=== PATIENT | male | born 1995 | race Two or more races ===

== ENCOUNTER 2017-07-31 21:42 | Emergency (ER) | payer SELFPAY ==
[~2017-07-31] VITALS: Ht 172.7 cm; Wt 78.0 kg
[2017-07-31] MEDS ORDERED: LORAZEPAM 2MG/ML CPJ IV STA (22:10)
[2017-07-31] MEDS ORDERED: OLANZAPINE 10 MG/VIAL IM STA (22:10)
[2017-07-31] MEDS ORDERED: SODIUM CHLORIDE 0.9% 1,000 ML IV ONE (22:10)
[2017-07-31 22:52] LABS: BASOPHILS % 0.7 % (0.0-2.0); CHLORIDE 108 mEq/L (98-107); HEMATOCRIT. 52.3 % (42.0-52.0); HEMOGLOBIN. 18.4 g/dL (14.0-18.0); LYMPHOCYTES % 19.2 % (20.0-50.0); MEAN CORPUSCULAR HEMOGLOBIN 30.4 pg (28.0-32.0); MEAN CORPUSCULAR VOLUME 86.5 fL (80.0-94.0); MEAN PLATELET VOLUME 7.3 fl (7.4-10.4); MONOCYTES % 6.3 % (2.0-8.0); NEUTROPHILS % 73.8 % (40.0-76.0); PLATELET 397 x1000/uL (130-400); RED BLOOD CELL COUNT 6.05 mill/uL (4.7-6.1); RED CELL DISTRIBUTION WIDTH 13.9 % (11.6-14.6)
[2017-07-31 22:54] LABS: INR 1.2; PROTHROMBIN TIME 12.1 sec (9.4-11.6)
[2017-07-31 22:57] LABS: AMMONIA 25 uMol/L (<32); ETHANOL BLOOD 175 mg/dL
[2017-07-31 23:01] LABS: CREATINE KINASE 200 IU/L (39-308)
[2017-07-31] MEDS ORDERED: LORAZEPAM 2MG/ML CPJ IM ONE (23:15)
[2017-08-01] MEDS ORDERED: CEFTRIAXONE 1 G PREMIX 50 ML IV SCH (00:42)
[2017-08-01] MEDS ORDERED: AZITHROMYCIN 500 MG in DEXT 5% WATER 250 ML IV SCH (00:42)
[2017-08-01] MEDS ORDERED: SODIUM CHLORIDE 0.9% 1000ML BAG (SEPSIS BOLUS) IV ONE (01:15)
[2017-08-01 04:21] LABS: CLARITY URINE CLEAR (CLEAR); COLOR URINE YELLOW (YELLOW); KETONES URINE NEGATIVE (NEGATIVE); LEUKOCYTE ESTERASE URINE NEGATIVE (NEGATIVE); NITRITE URINE NEGATIVE (NEGATIVE); OCCULT BLOOD URINE NEGATIVE (NEGATIVE); PROTEIN URINE NEGATIVE (NEGATIVE); SPECIFIC GRAVITY URINE 1.012 (1.005-1.030)
[2017-08-01 04:37] LABS: *AMPHETAMINES SCREEN URINE NEGATIVE (NEGATIVE); CANNABINOID URINE SCREEN PRESUMTIVE POSITIVE (NEGATIVE); METHADONE URINE SCREEN NEGATIVE (NEGATIVE); OPIATES URINE SCREEN NEGATIVE (NEGATIVE); PHENCYCLIDINE URINE SCREEN PRESUMTIVE POSITIVE (NEGATIVE)
[2017-08-01 04:38] LABS: *BARBITURATES SCREEN URINE NEGATIVE (NEGATIVE); *BENZODIAZEPINES SCREEN URINE PRESUMTIVE POSITIVE (NEGATIVE); *COCAINE SCREEN URINE NEGATIVE (NEGATIVE)
[2017-08-01 12:00] VITALS: BP 123/62
== END 2017-08-01 15:04 | disposition left against medical advice (07) ==
LOC: ER 21:42 → CANBEDREQ 08-01 21:27
DX: T51.0X1A Toxic effect of ethanol, accidental (unintentional), initial encounter (principal); F10.121 Alcohol abuse with intoxication delirium; Y90.6 Blood alcohol level of 120-199 mg/100 ml; R00.0 Tachycardia, unspecified; T47.0X1A Poisoning by histamine H2-receptor blockers, accidental (unintentional), initial encounter; F16.10 Hallucinogen abuse, uncomplicated; F15.10 Other stimulant abuse, uncomplicated; F11.10 Opioid abuse, uncomplicated; R45.1 Restlessness and agitation; F20.9 Schizophrenia, unspecified; Y92.098 Other place in other non-institutional residence as the place of occurrence of the external cause; E87.2 Acidosis; Z78.1 Physical restraint status; D50.9 Iron deficiency anemia, unspecified
CPT/HCPCS: 36415; 70450; 71045; 80053; 80305; 80307; 80329; 81003; 82140; 82550; 83605; 83690; 83735; 83880; 84443; 84484; 85025; 85610; 87040; 87086; 96365; 96366; 96372; 96375; 99291; G0482; J0456; J0696; J2060; J3490; J7030; Z7610; J7060

== ENCOUNTER 2021-03-21 20:08 | Emergency (ER) | payer SELFPAY ==
[~2021-03-21] VITALS: Ht 172.7 cm; Wt 91.0 kg
[2021-03-21 20:10] VITALS: BP 140/86
== END 2021-03-21 21:07 | disposition home or self-care (01) ==
LOC: ER 20:08
DX: T40.991A Poisoning by other psychodysleptics [hallucinogens], accidental (unintentional), initial encounter (principal); G92.8 Other toxic encephalopathy; F12.10 Cannabis abuse, uncomplicated; R00.0 Tachycardia, unspecified; I10 Essential (primary) hypertension; Y92.018 Other place in single-family (private) house as the place of occurrence of the external cause
CPT/HCPCS: 93005; 99283